=== PATIENT | female | born 1955 | race Caucasian/White ===

== ENCOUNTER 2019-03-25 20:11 | Emergency (ER) | payer MEDICAID ==
[~2019-03-25] VITALS: Ht 170.2 cm; Wt 72.6 kg
[2019-03-25] MEDS ORDERED: ACETYLCYSTEINE ORAL for CIN 20%(200MG/ML) 4ML PO ONE (20:45)
[2019-03-25] MEDS ORDERED: ACETYLCYSTEINE 20%(200MG/ML) SOLN 30ML ONE (21:08)
[2019-03-25 21:34] LABS: Basophils # (auto) 0 uL; Basophils % (auto) 0.7 % (0.0-2.0); Eosinophils # (auto) 0 uL; Eosinophils % (auto) 0.5 % (0.0-7.0); Hematocrit 44.4 % (36.0-46.0); Lymphocytes # (auto) 1.8 uL; Lymphocytes % (auto) 28.8 % (10.0-50.0); Mean Corpuscular Hemoglobin 32.1 pg (28.0-32.0); Mean Corpuscular Hgb Conc. 33.8 g/dL (32.0-36.0); Mean Corpuscular Volume 95.2 fL (80.0-100.0); Monocytes # (auto) 0.4 uL; Nucleated Red Blood Cells % 0.1 %; Platelet Count (auto) 301 10^3/uL (140-450); Red Blood Cells 4.67 10^6/uL (4.0-5.20); Red Cell Distribution Width 14.9 % (11.8-14.3); White Blood Cell 6.3 10^3/uL (4.4-10.8)
[2019-03-25 21:43] LABS: Salicylate 4.9 mg/dL (2.8-20.0)
[2019-03-25 21:44] LABS: Alanine Aminotransferase 21 U/L (13-56); Albumin 3.8 g/dL (3.4-5.0); Anion Gap 10 (5-15); Blood Alcohol < 3.0 mg/dL (0-5); Blood Urea Nitrogen 22 mg/dL (7-18); Calcium 8.7 mg/dL (8.5-10.1); Carbon Dioxide 23 mmol/L (21-32); Chloride 106 mmol/L (98-107); Glucose 86 mg/dL (74-106); Magnesium 2.1 mg/dL (1.6-2.6); Potassium 4.1 mmol/L (3.5-5.1); Sodium 139 mmol/L (136-145)
[2019-03-25 21:45] LABS: Acetaminophen < 2.0 ug/mL (10-30)
[2019-03-25 21:47] LABS: Alkaline Phosphatase 111 U/L (45-117); Aspartate Aminotransferase 18 U/L (15-37); BUN/Creatinine Ratio 25.6; Bilirubin, Total 0.6 mg/dL (0.2-1.0); GFR African American 86 mL/min; GFR Non-African American 71 mL/min; Total Protein 7.6 g/dL (6.4-8.2)
[2019-03-25 23:50] LABS: Urine Bacteria FEW /hpf (None Seen); Urine Blood Negative /uL (Negative); Urine Mucus FEW (None Seen); Urine Specific Gravity 1.029 (1.001-1.035); Urine WBC 8 /hpf (0 - 5)
[2019-03-25 23:59] LABS: Alcohol, Urine < 3.0 mg/dL (0-5); Amphetamine Screen, Urine POSITIVE (NEGATIVE); Barbiturate Scree,Urine NEGATIVE (NEGATIVE); Benzodiazephine Screen, Urine NEGATIVE (NEGATIVE); Cannabinoid Screen, Urine NEGATIVE (NEGATIVE); Cocaine Screen, Urine NEGATIVE (NEGATIVE); Opiate Scree,Urine NEGATIVE (NEGATIVE)
[2019-03-26 00:06] LABS: Phencyclidine Screen, Urine NEGATIVE (NEGATIVE)
[2019-03-26 01:30] LABS: Albumin 3.5 g/dL (3.4-5.0); BUN/Creatinine Ratio 28.6; Calcium 8.4 mg/dL (8.5-10.1); Potassium 3.8 mmol/L (3.5-5.1)
[2019-03-26 01:33] LABS: Bilirubin, Total 0.6 mg/dL (0.2-1.0)
[2019-03-26 01:34] LABS: Salicylate 4.9 mg/dL (2.8-20.0)
[2019-03-26 01:35] LABS: Acetaminophen < 2.0 ug/mL (10-30)
[2019-03-26] MEDS ORDERED: LORazepam 2MG/ML-1ML VIAL ONE (09:56)
[2019-03-26] MEDS: LORazepam 2MG/ML-1ML VIAL IM PRN ×2 (10:25→20:12)
[2019-03-27] MEDS ORDERED: SODIUM CHLORIDE 0.9% 1,000 ML IV ONE (16:45)
[2019-03-27 18:18] VITALS: BP 107/66
== END 2019-03-27 18:30 | disposition short-term general hospital (02) ==
LOC: EDBD 20:11 → ER 20:16
DX: T42.4X2A Poisoning by benzodiazepines, intentional self-harm, initial encounter (principal); F19.10 Other psychoactive substance abuse, uncomplicated; X83.8XXA Intentional self-harm by other specified means, initial encounter; Y93.89 Activity, other specified; Y99.8 Other external cause status; Y92.89 Other specified places as the place of occurrence of the external cause
CPT/HCPCS: 36415; 71045; 80053; 80307; 80320; 80329; 81001; 83735; 83880; 84484; 85025; 93005; 96372; 99285; J7030